=== PATIENT | male | born 1960 | race Caucasian/White ===

== ENCOUNTER 2017-08-27 14:49 | Emergency (ER) | payer BC ==
[2017-08-27] MEDS ORDERED: Ondansetron 4 MG/2 ML SDV IVPUSH ONE (15:10)
[2017-08-27] MEDS ORDERED: Sodium Chloride 0.9% 1,000 ML IV ONE (15:10)
[2017-08-27] MEDS ORDERED: Ketorolac 30 MG/ML SDV IVPUSH ONE (15:10)
--- NOTE | 2017-08-27 15:26 | EDM.PDOC ---
ED HPI GENERAL MEDICAL PROBLEM - General Chief Complaint: Abdominal Pain Stated Complaint: RIDE SIDE ABDOMINAL PAIN Time Seen by Provider: 08/27/17 15:26 Source of Information: Reports: Patient - History of Present Illness INITIAL COMMENTS - FREE TEXT/NARRATIVE: HISTORY AND PHYSICAL: History of present illness: [Patient presents with right-sided abdominal pain flank to groin hard to define for patient 8 out of 10 on arrival improved significantly with Toradol to currently is comfortable and tolerated at 2 out of 10 pain Some nausea no vomiting chills sweats no fever chest pain shortness breath headache dizziness or palpitation no bowel or urine symptoms] Review of systems: As per history of present illness and below otherwise all systems reviewed and negative. Past medical history: As per history of present illness and as reviewed below otherwise noncontributory. Surgical history: As per history of present illness and as reviewed below otherwise noncontributory. Social history: No reported history of drug or alcohol abuse. Family history: As per history of present illness and as reviewed below otherwise noncontributory. Physical exam: HEENT: Atraumatic, normocephalic, pupils reactive, negative for conjunctival pallor or scleral icterus, mucous membranes moist, throat clear, neck supple, nontender, trachea midline. Lungs: Clear to auscultation, breath sounds equal bilaterally, chest nontender. Heart: S1S2, regular, negative for clicks, rubs, or JVD. Abdomen: Soft, nondistended, nontender. Negative for masses or hepatosplenomegaly. Negative for costovertebral tenderness. Pelvis: Stable nontender. Genitourinary: Deferred. Rectal: Deferred. Extremities: Atraumatic, negative for cords or calf pain. Neurovascular unremarkable. Neuro: Awake, alert, oriented. Cranial nerves II through XII unremarkable. Cerebellum unremarkable. Motor and sensory unremarkable throughout. Exam nonfocal. Diagnostics: [CBC CMP amylase lipase troponin urine culture EKG CT abdomen pelvis with and without contrast ] Therapeutics: [1 L normal saline bolus Zofran 8 mg IV Toradol 30 mg IV Flomax 0.4 by mouth now Solu-Medrol 125 mg IV ] Bactrim single strength by mouth twice a day #20 no refill Lily No. 20 Zofran Metformin 500 by mouth twice a day Filter/strain urine Follow-up primary care urology Primary care referral provided for the next 2 weeks due to new onset diabetes Impression: 3 mm ureteral stone right UVJ Hyperglycemia New-onset diabetes Definitive disposition and diagnosis as appropriate pending reevaluation and review of above. Right Lower Abdominal Pain Score (Numeric/FACES): 8 - Related Data Allergies Allergy/AdvReac Type Severity Reaction Status Date / Time No Known Allergies Allergy Verified 08/27/17 15:11 Home Meds: Home Meds . [No Known Home Meds] 08/27/17 [History] Past Medical History Gastrointestinal History: Reports: Diverticulosis - Past Surgical History GI Surgical History: Reports: Appendectomy Social & Family History - Family History Family Medical History: Noncontributory - Tobacco Use Years of Tobacco use: 15 Packs/Tins Daily: 1 - Caffeine Use Caffeine Use: Reports: Soda - Recreational Drug Use Recreational Drug Use: No ED ROS GENERAL - Review of Systems Review Of Systems: ROS reveals no pertinent complaints other than HPI. ED EXAM, GENERAL - Physical Exam Exam: See Below Course - Vital Signs Last Recorded V/S: Last Vital Signs Temp 96.8 F 08/27/17 15:08 Pulse 67 08/27/17 15:08 Resp 18 08/27/17 15:08 BP 153/93 H 08/27/17 15:08 Pulse Ox 97 08/27/17 15:08 - Orders/Labs/Meds Orders: Active Orders 24 hr Category Date Time Status EKG 12 Lead [EKG Documentation Completion] [RC] STAT Care 08/27/17 15:09 Active Abdomen Pelvis w wo Cont [CT] Stat Exams 08/27/17 15:11 Taken CULTURE URINE [RM] Stat Lab 08/27/17 16:00 Received Labs: Laboratory Tests 08/27/17 08/27/17 08/27/17 Range/Units 15:47 15:47 16:00 WBC 9.45 (4.0-11.0) K/uL RBC 4.80 (4.50-5.90) M/uL Hgb 15.7 (13.0-17.0) g/dL Hct 43.0 (38.0-50.0) % MCV 89.6 (80.0-98.0) fL MCH 32.7 H (27.0-32.0) pg MCHC 36.5 (31.0-37.0) g/dL RDW Std Deviation 40.8 (28.0-62.0) fl RDW Coeff of Leydi 13 (11.0-15.0) % Plt Count 198 (150-400) K/uL MPV 10.00 (7.40-12.00) fL Neut % (Auto) 83.2 H (48.0-80.0) % Lymph % (Auto) 10.3 L (16.0-40.0) % [place] % (Auto) 6.2 (0.0-15.0) % Eos % (Auto) 0.2 (0.0-7.0) % Baso % (Auto) 0.1 (0.0-1.5) % Neut # (Auto) 7.9 H (1.4-5.7) K/uL Lymph # (Auto) 1.0 (0.6-2.4) K/uL [place] # (Auto) 0.6 (0.0-0.8) K/uL Eos # (Auto) 0.0 (0.0-0.7) K/uL Baso # (Auto) 0.0 (0.0-0.1) K/uL Nucleated RBC % 0.0 /100WBC Nucleated RBCs # 0 K/uL Sodium 139 (136-146) mmol/L Potassium 4.3 (3.5-5.1) mmol/L Chloride 105 (98-110) mmol/L Carbon Dioxide 22 (21-31) mmol/L BUN 19 (6.0-23.0) mg/dL Creatinine 1.2 (0.6-1.5) mg/dL Est Cr Clr Drug Dosing 73.21 mL/min Estimated GFR (MDRD) > 60.0 ml/min Glucose 325 H (60-110) mg/dL Calcium 9.4 (8.8-10.8) mg/dL Total Bilirubin 0.8 (0.1-1.5) mg/dL AST 36 (5-40) IU/L ALT 73 H (8-54) IU/L Alkaline Phosphatase 127 (40-150) Troponin I < 0.10 (0.0-0.29) NG/ML Total Protein 7.2 (6.0-8.0) g/dL Albumin 4.7 (3.5-5.0) g/dL Globulin 2.5 (2.0-3.5) g/dL Albumin/Globulin Ratio 1.9 (1.3-2.8) Amylase 46 (10-90) U/L Lipase 33 (7-80) U/L Urine Color YELLOW Urine Appearance CLEAR Urine pH 5.5 (5.0-8.0) Ur Specific [place] >= 1.030 (1.001-1.035) Urine Protein 30 (NEGATIVE) mg/dL Urine Glucose (UA) >=1000 (NEGATIVE) mg/dL Urine Ketones TRACE H (NEGATIVE) mg/dL Urine Occult Blood LARGE H (NEGATIVE) Urine Nitrite NEGATIVE (NEGATIVE) Urine Bilirubin NEGATIVE (NEGATIVE) Urine Urobilinogen 0.2 (<2.0) EU/dL Ur Leukocyte Esterase NEGATIVE (NEGATIVE) Urine RBC TOO NUMBEROUS TO CT (0-2/HPF) Urine WBC 0-1 (0-5/HPF) Ur Epithelial Cells OCCASIONAL (NONE-FEW) Urine Bacteria FEW (NEGATIVE) Meds: Medications Discontinued Medications Generic Name Dose Route Start Last Admin Trade Name Freq PRN Reason Stop Dose Admin Sodium Chloride 1,000 mls @ 999 mls/hr 08/27/17 15:10 08/27/17 16:00 Normal Saline IV 08/27/17 16:10 999 mls/hr STAT ONE Administration Iopamidol 100 ml 08/27/17 16:55 08/27/17 17:04 Isovue Multipack-370 (76%) IVPUSH 08/27/17 16:56 100 ml ONETIME STA Administration Ketorolac Tromethamine 30 mg 08/27/17 15:10 08/27/17 15:50 Toradol IVPUSH 08/27/17 15:11 30 mg ONETIME ONE Administration Methylprednisolone Sodium Succinate 125 mg 08/27/17 17:32 08/27/17 18:05 Solu-Medrol IVPUSH 08/27/17 17:33 125 mg ONETIME ONE Administration Ondansetron HCl 8 mg 08/27/17 15:10 08/27/17 15:50 Zofran IVPUSH 08/27/17 15:11 8 mg ONETIME ONE Administration Ondansetron HCl Confirm 08/27/17 15:43 08/27/17 17:32 Zofran Administered 08/27/17 15:44 Not Given Dose 4 mg .ROUTE .STK-MED ONE Tamsulosin HCl 0.4 mg 08/27/17 17:32 08/27/17 18:05 Flomax PO 08/27/17 17:33 0.4 mg ONETIME ONE Administration Departure - Departure Time of Disposition: 18:17 Disposition: Home, Self-Care 01 Condition: Good Clinical Impression: Ureteral stone with hydronephrosis - Discharge Information Referrals: PCP,None [Primary Care Provider] - Forms: ED Department Discharge Additional Instructions: Medication as prescribed Return if symptoms persist or worsen or intractable pain vomiting or fever should develop a temperature over 100.4 or higher prompt immediate return to emergency room ER referral for primary care in the next 2 weeks due to new onset diabetes, a kidney stone collection kit will be provided including filtering container return home stone to primary care for pathology and culture testing [facility] [address] [place] [address] The following information is given to patients seen in the emergency department who are being discharged to home. This information is to outline your options for follow-up care. We provide all patients seen in our emergency department with a follow-up referral. The need for follow-up, as well as the timing and circumstances, are variable depending upon the specifics of your emergency department visit. If you don't have a primary care physician on staff, we will provide you with a referral. We always advise you to contact your personal physician following an emergency department visit to inform them of the circumstance of the visit and for follow-up with them and/or the need for any referrals to a consulting specialist. The emergency department will also refer you to a specialist when appropriate. This referral assures that you have the opportunity for follow-up care with a specialist. All of these measure are taken in an effort to provide you with optimal care, which includes your follow-up. Under all circumstances we always encourage you to contact your private physician who remains a resource for coordinating your care. When calling for follow-up care, please make the office aware that this follow-up is from your recent emergency room visit. If for any reason you are refused follow-up, please contact the [facility] emergency department at and asked to speak to the emergency department charge nurse. - My Orders Last 24 Hours: My Active Orders 08/27/17 15:09 EKG 12 Lead [EKG Documentation Completion] [RC] STAT 08/27/17 15:11 Abdomen Pelvis w wo Cont [CT] Stat 08/27/17 16:00 CULTURE URINE [RM] Stat - Assessment/Plan Last 24 Hours: My Active Orders 08/27/17 15:09 EKG 12 Lead [EKG Documentation Completion] [RC] STAT 08/27/17 15:11 Abdomen Pelvis w wo Cont [CT] Stat 08/27/17 16:00 CULTURE URINE [RM] Stat
[2017-08-27] MEDS ORDERED: Ondansetron 4 MG/2 ML SDV ONE (15:43)
[2017-08-27 16:43] LABS: CHLORIDE,CL 105 mmol/L (98-110); SODIUM,NA 139 mmol/L (136-146)
[2017-08-27] MEDS ORDERED: Iopamidol 755 MG/ML 500 ML Multipack Bottle IVPUSH STA (16:55)
[2017-08-27] MEDS ORDERED: Tamsulosin 0.4 MG Cap.ER PO ONE (17:32)
[2017-08-27] MEDS ORDERED: methylPREDNISolone Sodium Succinate 125 MG/2 ML SDV IVPUSH ONE (17:32)
--- NOTE | 2017-08-28 09:24 | CT ---
EXAM DATE: 08/27/17 PATIENT'S AGE: 57 Patient: SARAH RUIZ Facility: [place], [place] Site . Site : [id number] Study: CT Abdomen/Pelvis [id number]/31/2018 5:20:21 PM Ordering Physician: Sheela Smith Final Report: INDICATION: Right-sided abdomen and flank pain TECHNIQUE: CT abdomen and pelvis acquired without and with IV contrast. COMPARISON: None. FINDINGS: Lower chest: Unremarkable. Liver: Unremarkable. Normal in size and attenuation. No masses. Gallbladder and bile ducts: Unremarkable. No stones or inflammation. No biliary dilatation. Pancreas: Unremarkable. No mass or inflammation. Spleen: Unremarkable. Normal in size. No masses. Adrenal glands: 1.5 cm myelolipoma is present in the left adrenal gland. Normal right adrenal gland. Kidneys: A 3 mm stone at the right ureterovesical junction is causing mild hydronephrosis. There is a 2nd tiny stone remaining in the right kidney. Normal left kidney. GI tract: Unremarkable. Normal in caliber. No sign of mass or inflammation. Vasculature: Unremarkable. Lymph nodes: No lymphadenopathy. Omentum/Peritoneum/Abdominal Wall: Unremarkable. No sign of mass or infiltration. No free air or significant free fluid. Pelvis: Unremarkable. Bones: Unremarkable for age. IMPRESSION: 3 mm stone at the right UVJ is causing mild hydronephrosis. A 2nd tiny stone remains in the right kidney. Dictated by Iker Varghese MD @ 08/27/2017 6:04:51 PM Dictated by: Iker Varghese MD @ 08/27/2017 18:05:05 (Electronic Signature) Report Signed by Proxy. [facility] PS[facility]CHIATRIC CENTERAnnalee
== END 2017-08-27 18:30 | disposition home or self-care (01) ==
LOC: MW.ED 14:49
DX: N13.2 Hydronephrosis with renal and ureteral calculous obstruction (principal); E11.65 Type 2 diabetes mellitus with hyperglycemia
CPT/HCPCS: 36415; 74178; 80053; 81001; 82150; 83690; 84484; 85025; 87086; 93005; 96361; 96374; 96375; 99284; A9270; J1885; J2405; J2930; J7040; Q9967; 99283

== ENCOUNTER 2023-09-12 21:47 | Emergency (ER) | payer BC ==
[2023-09-12] MEDS: Diphtheria,Pertussis(Acell),Tetanus Vaccine 0.5 ML Syringe IM ONE (22:38)
== END 2023-09-13 02:54 | disposition home or self-care (01) ==
LOC: MW.ED 21:47
DX: S09.90XA Unspecified injury of head, initial encounter (principal); I10 Essential (primary) hypertension; E78.00 Pure hypercholesterolemia, unspecified; E11.9 Type 2 diabetes mellitus without complications; E03.9 Hypothyroidism, unspecified; Z79.899 Other long term (current) drug therapy; W22.8XXA Striking against or struck by other objects, initial encounter; Z23 Encounter for immunization
CPT/HCPCS: 12002; 70450; 70450-26; 72125; 72125-26; 90471; 90715; 99283-25

== ENCOUNTER 2024-04-30 17:42 | Emergency (ER) | payer BC ==
[2024-04-30] MEDS: Sodium Chloride 0.9% 1,000 ML IV ONE (18:27)
[2024-04-30] MEDS: Ketorolac 30 MG/ML SDV IVPUSH ONE (18:28)
[2024-04-30 18:31] LABS: BILIRUBIN,URINE NEGATIVE (NEGATIVE); COLOR,URINE YELLOW; GLUCOSE,URINE >=1000 mg/dL (NEGATIVE); KETONES,URINE NEGATIVE (NEGATIVE); LEUKOCYTE ESTERASE,URINE NEGATIVE (NEGATIVE); NITRITE,URINE NEGATIVE (NEGATIVE); OCCULT BLOOD,URINE MODERATE (NEGATIVE); PROTEIN,URINE NEGATIVE (NEGATIVE); UROBILINOGEN,URINE 0.2 EU/dL (<2.0)
[2024-04-30 18:45] LABS: BASOPHILS ABSOLUTE AUTO 0.03 K/uL (0.00-0.20); BASOPHILS PERCENT AUTO 0.4 % (0.0-1.0); EOSINOPHILS ABSOLUTE AUTO 0.11 K/uL (0.00-0.45); EOSINOPHILS PERCENT AUTO 1.3 % (0.0-6.0); HEMATOCRIT 43.9 % (42.0-52.0); HEMOGLOBIN 15.5 g/dL (14.0-18.0); IMMATURE GRAN ABSOLUTE AUTO 0.03 K/uL (0.00-0.05); IMMATURE GRAN PERCENT AUTO 0.4 % (0.0-0.4); LYMPHOCYTES ABSOLUTE AUTO 1.07 K/uL (1.00-4.80); LYMPHOCYTES PERCENT AUTO 12.7 % (24.0-44.0); MEAN CORPUSCULAR HEMOGLOBIN 32.2 pg (28.0-32.0); MEAN CORPUSCULAR HGB CONC 35.3 g/dL (32.0-36.0); MEAN CORPUSCULAR VOLUME 91.1 fL (83.0-99.0); MEAN PLATELET VOLUME 9.6 fL (9.4-12.4); MONOCYTES ABSOLUTE AUTO 0.77 K/uL (0.00-0.80); MONOCYTES PERCENT AUTO 9.1 % (0.0-8.0); NEUTROPHILS ABSOLUTE AUTO 6.42 K/uL (1.80-7.70); NEUTROPHILS PERCENT AUTO 76.1 % (41.0-71.0); PLATELET COUNT,PLT 167 K/uL (150-400); RED BLOOD CELL COUNT 4.82 M/uL (4.52-5.90); WHITE BLOOD CELL COUNT,WBC 8.43 K/uL (3.9-11.3)
[2024-04-30 18:48] LABS: APPEARANCE,URINE SLT CLOUDY
[2024-04-30 18:49] LABS: BACTERIA,URINE FEW (NEGATIVE); EPITHELIAL CELLS,URINE RARE (NONE-FEW); RBC,URINE 75-100 (0-2/HPF); WBC,URINE 0-1 (0-5/HPF)
[2024-04-30 18:58] LABS: A/G RATIO 1.7 (0.9-1.6); ALBUMIN 4.5 g/dL (3.4-5.0); BILIRUBIN TOTAL 0.7 mg/dL (0.2-1.0); CALCIUM 9.3 mg/dL (8.5-10.1); CARBON DIOXIDE,CO2 28.3 mmol/L (21.0-32.0); CREATININE 1.3 mg/dL (0.8-1.3); EST CRCL DRUG DOSING (CG) 61.95 mL/min; MAGNESIUM 2.3 mg/dL (1.8-2.4); POTASSIUM,K 4.3 mmol/L (3.5-5.1); PROTEIN TOTAL,TP 7.2 g/dL (6.4-8.2)
[2024-04-30] MEDS: Iopamidol 755 MG/ML 500 ML Multipack Bottle IVPUSH ONE (19:32)
== END 2024-04-30 21:57 | disposition home or self-care (01) ==
LOC: MW.ED 17:42
DX: N13.2 Hydronephrosis with renal and ureteral calculous obstruction (principal); I10 Essential (primary) hypertension; E78.00 Pure hypercholesterolemia, unspecified; E11.9 Type 2 diabetes mellitus without complications; E03.9 Hypothyroidism, unspecified; E66.9 Obesity, unspecified; Z90.49 Acquired absence of other specified parts of digestive tract; Z79.899 Other long term (current) drug therapy; Z79.84 Long term (current) use of oral hypoglycemic drugs; Z75.8 Other problems related to medical facilities and other health care
CPT/HCPCS: 36415; 74177; 80053; 81001; 83690; 83735; 85025; 96361; 96374; 99284; J1885; J7030; Q9967